=== PATIENT | male | born 1950 | race Caucasian/White ===

== ENCOUNTER → 2023-02-08 | Outpatient (REF) | payer MEDICARE, OTHER, BC | LOC: M SMT PRO 12:58 | PROVIDERS: ATTEND Urology | DX: C61 Malignant neoplasm of prostate (principal); F17.290 Nicotine dependence, other tobacco product, uncomplicated; Z92.3 Personal history of irradiation; Z79.51 Long term (current) use of inhaled steroids; Z79.818 Long term (current) use of other agents affecting estrogen receptors and estrogen levels; Z79.899 Other long term (current) drug therapy; Z88.1 Allergy status to other antibiotic agents; Z88.0 Allergy status to penicillin; Z84.1 Family history of disorders of kidney and ureter ==

== ENCOUNTER → 2023-06-14 | Outpatient (CLI) | payer MEDICARE, OTHER, BC | LOC: M SOG 07:51 | PROVIDERS: ATTEND Physician Assistant | DX: M54.6 Pain in thoracic spine (principal) ==

== ENCOUNTER → 2023-06-17 | Outpatient (CLI) | payer MEDICARE, BC, OTHER | LOC: M RAD 16:52 | PROVIDERS: ATTEND Physician Assistant | DX: M51.34 Other intervertebral disc degeneration, thoracic region (principal); R91.8 Other nonspecific abnormal finding of lung field ==

== ENCOUNTER → 2023-08-04 | Outpatient (CLI) | payer MEDICARE, BC, OTHER | LOC: M SOG 14:50 | PROVIDERS: ATTEND Physician Assistant | DX: M54.2 Cervicalgia (principal) ==

== ENCOUNTER → 2023-08-16 | Outpatient (CLI) | payer MEDICARE, BC, OTHER | LOC: M SOG 13:17 | PROVIDERS: ATTEND Orthopaedic Surgery | DX: M25.531 Pain in right wrist (principal); M25.532 Pain in left wrist ==